=== PATIENT | male | born 1950 | race Caucasian/White ===

== ENCOUNTER 2016-11-14 19:18 | Emergency (ER) | payer OTHER ==
[2016-11-14] MEDS ORDERED: ONDANSETRON ODT PREPAC 4 MG TAB.RAPDIS PO ONE (20:04)
[2016-11-14] MEDS ORDERED: HYDROcodone/APAP PREPAC 5/325 1 TAB TABLET PO ONE (20:04)
--- NOTE | 2016-11-14 20:15 | ER PHYSICIAN DOCUMENTATION ---
Physician Documentation [facility] Name:Que Winston Jr Age:65 yrs Sex:Male :1950 Arrival Date:11/14/2016 Time:19:18 Bed6 Private MD:No PCP, Identified ED PhysicianSanto Mahajan Disposition: 11/14 20:20 Chart complete. tl1 Disposition: 11/14/16 19:52 Discharged to Home/Self Care. Impression: Chest Contusion. - Condition is Good. - Discharge Instructions: CHEST CONTUSION - CHEST WALL CONTUSION. - Prescriptions for [place] 5- 325 mg Oral Tablet - take 1 tablet by ORAL route every 6 hours As needed; 20 tablet. Zofran 4 mg Oral Tablet - take 1-2 tablet by ORAL route every 4-6 hours As needed; 10 tablet. - Medical Reconciliation form form. - Follow up: Private Physician; When: As needed; Reason: Recheck today's complaints. - Problem is new. - Symptoms are unchanged. HPI: 19:30 This 65 yrs old Male presents to ER via Walk In with complaints of Fall tl1 Injury. 19:30 Details of fall: The patient fell from an upright position. Onset: The tl1 symptom(s)/episode began/occurred suddenly, 2 hour(s) ago. He was with his granddaughter at the playground. He stood up and hit the back of his head on some playground equipment , causing him to fall backwards, striking his left mid-posterolateral ribs, resulting in persistent left pleuritic chest pain. No dyspnea or hemoptysis.. No headache, no neck pain, n/w/t... Historical: - Allergies: No known drug Allergies; - Home Meds: 1. losartan 50 mg oral tab 1 tab once daily - PMHx: Hypertension; - PSHx: HERNIA REPAIR; - Tetanus: unknown. - Ebola Screening: : Patient negative for fever greater than or equal to 101.5 degrees Fahrenheit, and additional compatible Ebola Virus Disease symptoms. - Immunization history: Flu Vaccine None. - Social history: Smoking status: Patient states was never smoker of tobacco. ROS: 20:00 MS/extremity: Negative for acute changes, injury or acute deformity. tl1 20:00 All other systems are negative. Exam: 20:00 Constitutional: This is a well developed, well nourished patient who is awake, alert, tl1 and in no acute distress. Head/Face: Normocephalic, atraumatic. Eyes: Pupils equal round and reactive to light, extra-ocular motions intact. Lids and lashes normal. Conjunctiva and sclera are non-icteric and not injected. Cornea within normal limits. Periorbital areas with no swelling, redness, or edema. ENT: Nares patent. No nasal discharge, no septal abnormalities noted. Tympanic membranes are normal and external auditory canals are clear. Oropharynx with no redness, swelling, or masses, exudates, or evidence of obstruction, uvula midline. Mucous membranes moist. 20:00 Neck: Trachea midline, no thyromegaly or masses palpated, and no cervical tl1 lymphadenopathy. Supple, full range of motion without nuchal rigidity, or vertebral point tenderness. No Meningismus. 20:00 Chest/axilla: Inspection: abrasion, that is mild, of the Left mid thoracic abrasion and TTP, about 4-6 cm below the tip of the scapula. No crepitus or SQ air. Breath sounds clear and equal 20:00 Cardiovascular: Rate: normal, Rhythm: regular, Pulses: Heart sounds: normal. 20:00 Respiratory: the patient does not display signs of respiratory distress, Respirations: normal, Breath sounds: are normal. 20:00 Abdomen/GI: Palpation: abdomen is soft and non-tender. 20:00 Back: CVA tenderness, is absent, vertebral tenderness, is not appreciated. 20:00 Musculoskeletal/extremity: Exam is negative for acute changes. 20:00 Skin: Exam negative for acute changes. 20:00 Neuro: Exam negative for acute changes. Vital Signs: 19:28 BP 137 / 95; Pulse 103; Resp 14; Temp 98.1; Pulse Ox 92% on R/A; Weight 88.45 kg; em1 Height 5 ft. 10 in. (177.80 cm); Pain 6/10; 19:28 Body Mass Index 27.98 (88.45 kg, 177.80 cm) em1 MDM: 19:49 Patient medically screened. tl1 20:00 Differential diagnosis: abrasion, contusion, fracture, pneumothorax, pulmonary tl1 contusion.. Data reviewed: vital signs, nurses notes, radiologic studies, plain films, and as a result, I will discharge patient. Test interpretation: by ED physician or midlevel provider: plain radiologic studies. Counseling: I had a detailed discussion with the patient and/or guardian regarding: the historical points, exam findings, and any diagnostic results supporting the discharge/admit diagnosis, radiology results, the need for outpatient follow up, to return to the emergency department if symptoms worsen or persist or if there are any questions or concerns that arise at home. Response to treatment: the patient's symptoms have mildly improved after treatment, and as a result, I will discharge patient. 11/14 19:50 Order name: Ice Packs; Complete Time: 19:50 rh Dispensed Medications: 19:55 Drug: HYDROcodone-acetaminophen (5mg/325 mg) 1-2 tabs 1 tabs; Route: PO; rh 19:56 Follow up: Response: Pharmacy closed - take home med pack 19:56 Drug: Zofran 1 tablet; Route: PO; rh 19:56 Follow up: Response: Pharmacy closed - take home med pack Signatures: Santo Mahajan MD MD tl1 Sheree Montanez
--- NOTE | 2016-11-14 20:15 | ER NURSING DOCUMENTATION ---
Nurse's Notes [facility] Name:Que Winston Jr Age:65 yrs Sex:Male :1950 Arrival Date:11/14/2016 Time:19:18 Bed6 Private MD:No PCP, Identified Diagnosis:Chest Contusion Presentation: 11/14 19:19 Acuity: NEMO 4 19:24 Presenting complaint: Patient states: Pt was playing with grandkid on a playground, rh stood up and bumped his head on some plastic. After bumping his head he fell back and hit the left side of his back below his scapula on a stair. Pt did not lose consciousness and is not SOB. Transition of care: Other Playground. 19:24 Method Of Arrival: Walk In Triage Assessment: 19:26 General: Appears in no apparent distress, Behavior is cooperative. Pain: Complains of rh pain in left subscapular area. Neuro: Level of Consciousness is awake, alert, obeys commands, Oriented to person, place, time, event. Cardiovascular: Capillary refill < 3 seconds. Respiratory: Airway is patent Respiratory effort is even, unlabored, Breath sounds are clear bilaterally. Denies shortness of breath. GI: Denies nausea. Derm: Skin is intact, is healthy with good turgor, Skin is pink, warm & dry. Musculoskeletal: Circulation, motion, and sensation intact Range of motion intact in all extremities. Historical: - Allergies: No known drug Allergies; - Home Meds: 1. losartan 50 mg oral tab 1 tab once daily - PMHx: Hypertension; - PSHx: HERNIA REPAIR; - Tetanus: unknown. - Ebola Screening: : Patient negative for fever greater than or equal to 101.5 degrees Fahrenheit, and additional compatible Ebola Virus Disease symptoms. - Immunization history: Flu Vaccine None. - Social history: Smoking status: Patient states was never smoker of tobacco. Screenin:27 Infectious Disease Risk None. Abuse screen: Denies threats or abuse. Denies injuries rh from another. Nutritional screening: No deficits noted. Assessment: 19:27 See Triage Assessment done by same RN. Vital Signs: 19:28 BP 137 / 95; Pulse 103; Resp 14; Temp 98.1; Pulse Ox 92% on R/A; Weight 88.45 kg; em1 Height 5 ft. 10 in. (177.80 cm); Pain 6/10; 19:28 Body Mass Index 27.98 (88.45 kg, 177.80 cm) em1 ED Course: 19:18 Patient arrived in ED. em2 19:18 No PCP, Identified is Private Physician. em2 19:19 Triage completed. rh 19:27 Notified ED Physician of patient's arrival and chief complaint. Dr. Mahajan notified. rh Affected limb iced. 19:27 Valuables Remains with patient Patient has correct armband on for positive rh identification. Bed in low position. Family accompanied patient. 19:49 Santo Mahajan MD is Attending Physician. tl1 19:50 Sheree Montanez is Primary Nurse. rh 20:00 Patient moved to radiology. tt 20:04 Patient moved back from radiology. tt Administered Medications: 19:55 Drug: HYDROcodone-acetaminophen (5mg/325 mg) 1-2 tabs 1 tabs; Route: PO; rh 19:56 Follow up: Response: Pharmacy closed - take home med pack 19:56 Drug: Zofran 1 tablet; Route: PO; rh 19:56 Follow up: Response: Pharmacy closed - take home med pack Outcome: 19:52 Discharge ordered by . tl1 20:14 Discharged to home ambulatory, with significant other. rh 20:14 Condition: stable 20:14 Discharge Assessment: Patient awake, alert and oriented x 3. No cognitive and/or functional deficits noted. Patient verbalized understanding of disposition instructions. 20:14 Discharge instructions given to patient, significant other, Instructed on discharge instructions, follow up and referral plans. [facility] Demonstrated understanding of instructions, medications, Prescriptions given X 2. 20:14 Patient left the ED. rh Signatures: Eula Martínez tt [employer], Jennifer-tech em1 [employer]inking-reg, Jennifer-reg em2 Santo Mahajan MD MD tl1 Sheree Montanez rh
--- NOTE | 2016-11-16 09:18 | RADIOLOGY REPORT ---
Two views of the chest, without prior films for comparison, demonstrate the heart and vessels to be unremarkable. The lung palacios are clear. No infiltrate , fluid or pneumothorax is seen. IMPRESSION: No acute cardiopulmonary abnormality is identified. MTDD
== END 2016-11-14 20:15 | disposition home or self-care (01) ==
LOC: ER 19:18
DX: S20.222A Contusion of left back wall of thorax, initial encounter (principal); S20.412A Abrasion of left back wall of thorax, initial encounter; W18.09XA Striking against other object with subsequent fall, initial encounter; Y92.830 Public park as the place of occurrence of the external cause; Y93.89 Activity, other specified; I10 Essential (primary) hypertension; Z79.899 Other long term (current) drug therapy
CPT/HCPCS: 71020; 99283